=== PATIENT | male | born 1955 | race Asian ===

== ENCOUNTER 2018-10-08 17:47 | Inpatient (IN) | payer OTHER ==
[~2018-10-08] VITALS: Ht 172.7 cm; Wt 57.1 kg
[~2018-10-08 17:47] MED LIST: ACET-141 PO; ACET160O41 PO; APIX5TAB PO; ASPI-817 PO; ATOR40TA68 PO; FAMO20TA18 PO; FOL8 PO; [UNRECOGNIZED DRUG - CODE] PO
[2018-10-08 21:00] VITALS: BP 143/75; PULSE 88; RESP 18; Ht 172.7 cm; Wt 57.1 kg
[2018-10-08] MEDS ORDERED: DOCUSATE SODIUM 100 MG CAP PO SCH (23:00)
[2018-10-08] MEDS ORDERED: MAGNESIUM HYDROXIDE 30ML CUP PO PRN (23:30)
[2018-10-08] MEDS ORDERED: LACTULOSE 30ML CUP PO PRN (23:30)
[2018-10-08] MEDS ORDERED: BISACODYL 10 MG SUPP PR PRN (23:30)
[2018-10-08] MEDS: MAGNESIUM OXIDE 400 MG TAB PO SCH (23:54)
[2018-10-08] MEDS: ACETAMINOPHEN 325 MG TAB PO PRN (23:55)
[2018-10-08] MEDS: ATORVASTATIN 80 MG TAB PO SCH (23:55)
[2018-10-08] MEDS: HEPARIN 5,000 UNIT/1 ML VIAL SC SCH (23:57)
[2018-10-09 02:22] VITALS: BP 109/67; PULSE 81; RESP 18
[2018-10-09] MEDS ORDERED: PENDING SANTYL ORDER FOR WOUND CARE XX PRN (04:00)
[2018-10-09 08:20] VITALS: BP 118/72; PULSE 78; RESP 18
[2018-10-09] MEDS ORDERED: ASPIRIN (EC) 325 MG TAB PO SCH (09:00)
[2018-10-09] MEDS: NICOTINE (7 MG/24 HR) PATCH TRANSDERM SCH (09:08)
[2018-10-09] MEDS: HEPARIN 5,000 UNIT/1 ML VIAL SC SCH ×2 (09:09→20:43)
[2018-10-09] MEDS: FOLIC ACID 1 MG TAB NGT SCH (09:10)
[2018-10-09] MEDS: MAGNESIUM OXIDE 400 MG TAB PO SCH ×2 (09:10→20:43)
[2018-10-09] MEDS: LISINOPRIL 5 MG TAB PO SCH (09:10)
[2018-10-09] MEDS: MULTIVITAMINS/MINERALS TAB PO SCH (09:10)
[2018-10-09] MEDS: SENNA TAB PO SCH (09:10)
[2018-10-09] MEDS: THIAMINE 100 MG TAB PO SCH (09:10)
[2018-10-09] MEDS: DOCUSATE SODIUM 10 MG/ML (10ML CUP) PO SCH ×2 (09:14→21:00)
[2018-10-09] MEDS: ASPIRIN 325 MG TAB PO SCH (12:02)
[2018-10-09 15:10] VITALS: BP 123/75; PULSE 83; RESP 18
[2018-10-09 20:13] VITALS: BP 125/67; PULSE 79; RESP 18
[2018-10-09] MEDS: ATORVASTATIN 80 MG TAB PO SCH (20:43)
[2018-10-10 02:08] VITALS: BP 114/70; RESP 18
[2018-10-10] MEDS ORDERED: PANTOPRAZOLE 40 MG INJ IV SCH (06:00)
[2018-10-10 07:00] VITALS: BP 125/71; PULSE 84; RESP 18
[2018-10-10] MEDS: SENNA TAB PO SCH (09:00)
[2018-10-10] MEDS: DOCUSATE SODIUM 10 MG/ML (10ML CUP) PO SCH ×2 (09:00→20:47)
[2018-10-10] MEDS: ASPIRIN 325 MG TAB PO SCH (09:45)
[2018-10-10] MEDS: FOLIC ACID 1 MG TAB NGT SCH (09:45)
[2018-10-10] MEDS: THIAMINE 100 MG TAB PO SCH (09:45)
[2018-10-10] MEDS: NICOTINE (7 MG/24 HR) PATCH TRANSDERM SCH (09:47)
[2018-10-10] MEDS: MULTIVITAMINS/MINERALS TAB PO SCH (09:47)
[2018-10-10] MEDS: LISINOPRIL 5 MG TAB PO SCH (09:48)
[2018-10-10] MEDS: HEPARIN 5,000 UNIT/1 ML VIAL SC SCH ×2 (09:49→20:49)
[2018-10-10] MEDS: MAGNESIUM OXIDE 400 MG TAB PO SCH ×2 (09:50→20:47)
[2018-10-10 20:00] VITALS: BP 113/73; PULSE 82; RESP 18
[2018-10-10] MEDS: ATORVASTATIN 80 MG TAB PO SCH (20:47)
[2018-10-11 02:10] VITALS: BP 127/70; RESP 18
[2018-10-11] MEDS: LANSOPRAZOLE 30 MG CAP PO SCH (05:48)
[2018-10-11 07:30] VITALS: BP 122/79; PULSE 96; RESP 20
[2018-10-11] MEDS: ASPIRIN 325 MG TAB PO SCH (08:53)
[2018-10-11] MEDS: MAGNESIUM OXIDE 400 MG TAB PO SCH ×2 (08:54→20:52)
[2018-10-11] MEDS: THIAMINE 100 MG TAB PO SCH (08:54)
[2018-10-11] MEDS: FOLIC ACID 1 MG TAB NGT SCH (08:54)
[2018-10-11] MEDS: SENNA TAB PO SCH (08:54)
[2018-10-11] MEDS: MULTIVITAMINS/MINERALS TAB PO SCH (08:54)
[2018-10-11] MEDS: DOCUSATE SODIUM 10 MG/ML (10ML CUP) PO SCH ×2 (08:54→20:49)
[2018-10-11] MEDS: LISINOPRIL 5 MG TAB PO SCH (08:55)
[2018-10-11] MEDS: NICOTINE (7 MG/24 HR) PATCH TRANSDERM SCH (08:56)
[2018-10-11] MEDS: HEPARIN 5,000 UNIT/1 ML VIAL SC SCH ×2 (09:03→20:52)
[2018-10-11 14:00] VITALS: BP 117/77; PULSE 85; RESP 20
[2018-10-11 19:46] VITALS: BP 106/62; PULSE 104; RESP 17
[2018-10-11] MEDS: ATORVASTATIN 80 MG TAB PO SCH (20:49)
[2018-10-12 02:59] VITALS: BP 104/65; PULSE 101; RESP 18
[2018-10-12] MEDS: LANSOPRAZOLE 30 MG CAP PO SCH (06:39)
[2018-10-12 07:00] VITALS: BP 123/77; PULSE 109; RESP 18
[2018-10-12] MEDS: HEPARIN 5,000 UNIT/1 ML VIAL SC SCH ×2 (09:14→20:42)
[2018-10-12] MEDS: NICOTINE (7 MG/24 HR) PATCH TRANSDERM SCH (09:14)
[2018-10-12] MEDS: DOCUSATE SODIUM 10 MG/ML (10ML CUP) PO SCH ×2 (09:14→20:33)
[2018-10-12] MEDS: SENNA TAB PO SCH (09:15)
[2018-10-12] MEDS: LISINOPRIL 5 MG TAB PO SCH (09:15)
[2018-10-12] MEDS: MAGNESIUM OXIDE 400 MG TAB PO SCH ×2 (09:15→20:34)
[2018-10-12] MEDS: MULTIVITAMINS/MINERALS TAB PO SCH (09:15)
[2018-10-12] MEDS: ASPIRIN 325 MG TAB PO SCH (09:15)
[2018-10-12] MEDS: FOLIC ACID 1 MG TAB NGT SCH (09:15)
[2018-10-12] MEDS: THIAMINE 100 MG TAB PO SCH (09:15)
[2018-10-12 14:00] VITALS: BP 119/75; PULSE 90; RESP 18
[2018-10-12] MEDS: NICOTINE (21 MG/24 HR) PATCH TRANSDERM SCH (14:59)
[2018-10-12] MEDS: GUAIFENESIN 20 MG/ML 5ML CUP PO PRN ×2 (15:29→20:33)
[2018-10-12 20:00] VITALS: BP 116/72; PULSE 109; RESP 18
[2018-10-12] MEDS: ATORVASTATIN 80 MG TAB PO SCH (20:33)
[2018-10-12] MEDS: ACETAMINOPHEN 325 MG TAB PO PRN (20:33)
[2018-10-13] VITALS (8 sets, daily range): BP systolic 82–116; BP diastolic 64–75; PULSE 63–119; RESP 18
[2018-10-13] MEDS: LANSOPRAZOLE 30 MG CAP PO SCH (06:26)
[2018-10-13] MEDS: DOCUSATE SODIUM 10 MG/ML (10ML CUP) PO SCH ×2 (09:13→22:08)
[2018-10-13] MEDS: NICOTINE (21 MG/24 HR) PATCH TRANSDERM SCH (09:14)
[2018-10-13] MEDS: ASPIRIN 325 MG TAB PO SCH (09:15)
[2018-10-13] MEDS: SENNA TAB PO SCH (09:15)
[2018-10-13] MEDS: MAGNESIUM OXIDE 400 MG TAB PO SCH ×2 (09:15→22:08)
[2018-10-13] MEDS: LISINOPRIL 5 MG TAB PO SCH (09:17)
[2018-10-13] MEDS: THIAMINE 100 MG TAB PO SCH (09:17)
[2018-10-13] MEDS: FOLIC ACID 1 MG TAB NGT SCH (09:17)
[2018-10-13] MEDS: MULTIVITAMINS/MINERALS TAB PO SCH (09:17)
[2018-10-13] MEDS: HEPARIN 5,000 UNIT/1 ML VIAL SC SCH ×2 (09:23→22:07)
[2018-10-13] MEDS ORDERED: SOD CHLORIDE 0.9% 500 ML IV ONE (12:30)
[2018-10-13] MEDS ORDERED: MIDODRINE 2.5 MG TAB NGT PRN (13:00)
[2018-10-13] MEDS: GUAIFENESIN 20 MG/ML 5ML CUP PO PRN (22:08)
[2018-10-13] MEDS: ATORVASTATIN 80 MG TAB PO SCH (22:08)
[2018-10-14 02:32] VITALS: BP 106/78; PULSE 67; RESP 18
[2018-10-14 07:00] VITALS: BP 134/83; PULSE 90; RESP 18
[2018-10-14] MEDS ORDERED: LISINOPRIL 5 MG TAB PO SCH (09:00)
[2018-10-14] MEDS: HEPARIN 5,000 UNIT/1 ML VIAL SC SCH ×2 (09:55→20:59)
[2018-10-14] MEDS: MAGNESIUM OXIDE 400 MG TAB PO SCH ×2 (09:56→20:56)
[2018-10-14] MEDS: MULTIVITAMINS/MINERALS TAB PO SCH (09:56)
[2018-10-14] MEDS: NICOTINE (21 MG/24 HR) PATCH TRANSDERM SCH (09:56)
[2018-10-14] MEDS: SENNA TAB PO SCH (09:56)
[2018-10-14] MEDS: FAMOTIDINE 20 MG TAB PO SCH ×2 (09:56→20:56)
[2018-10-14] MEDS: THIAMINE 100 MG TAB PO SCH (09:57)
[2018-10-14] MEDS: ASPIRIN 325 MG TAB PO SCH (09:57)
[2018-10-14] MEDS: SILVER SULFADIAZINE 1% 25 GM CR TOP SCH (09:57)
[2018-10-14] MEDS: DOCUSATE SODIUM 10 MG/ML (10ML CUP) PO SCH ×2 (09:57→20:59)
[2018-10-14] MEDS: FOLIC ACID 1 MG TAB NGT SCH (09:57)
[2018-10-14 10:00] VITALS: BP 128/85; PULSE 88; RESP 18
[2018-10-14 14:00] VITALS: BP 124/79; PULSE 98; RESP 18
[2018-10-14 20:00] VITALS: BP 110/68; PULSE 87; RESP 18
[2018-10-14] MEDS: ATORVASTATIN 80 MG TAB PO SCH (20:56)
[2018-10-14] MEDS: GUAIFENESIN 20 MG/ML 5ML CUP PO PRN (20:57)
[2018-10-14] MEDS: ACETAMINOPHEN 325 MG TAB PO PRN (20:57)
[2018-10-15 02:00] VITALS: BP 118/77; PULSE 92; RESP 18
[2018-10-15 08:00] VITALS: BP 130/80; PULSE 90; RESP 17
[2018-10-15] MEDS: SENNA TAB PO SCH (09:00)
[2018-10-15] MEDS: DOCUSATE SODIUM 10 MG/ML (10ML CUP) PO SCH ×2 (09:00→21:53)
[2018-10-15] MEDS: ASPIRIN 325 MG TAB PO SCH (09:10)
[2018-10-15] MEDS: MAGNESIUM OXIDE 400 MG TAB PO SCH ×2 (09:10→21:54)
[2018-10-15] MEDS: THIAMINE 100 MG TAB PO SCH (09:11)
[2018-10-15] MEDS: HEPARIN 5,000 UNIT/1 ML VIAL SC SCH ×2 (09:11→21:50)
[2018-10-15] MEDS: FAMOTIDINE 20 MG TAB PO SCH ×2 (09:11→21:54)
[2018-10-15] MEDS: MULTIVITAMINS/MINERALS TAB PO SCH (09:12)
[2018-10-15] MEDS: FOLIC ACID 1 MG TAB NGT SCH (09:12)
[2018-10-15] MEDS: NICOTINE (21 MG/24 HR) PATCH TRANSDERM SCH (09:14)
[2018-10-15] MEDS: SILVER SULFADIAZINE 1% 25 GM CR TOP SCH (09:30)
[2018-10-15 14:00] VITALS: BP 114/68; PULSE 89; RESP 17
[2018-10-15 20:00] VITALS: BP 118/70; PULSE 87; RESP 18
[2018-10-15] MEDS: GUAIFENESIN 20 MG/ML 5ML CUP PO PRN (21:52)
[2018-10-15] MEDS: ATORVASTATIN 80 MG TAB PO SCH (21:54)
[2018-10-16 02:00] VITALS: BP 122/67; PULSE 90; RESP 18
[2018-10-16 07:30] VITALS: BP 113/77; PULSE 97; RESP 18
[2018-10-16] MEDS: NICOTINE (21 MG/24 HR) PATCH TRANSDERM SCH (09:00)
[2018-10-16] MEDS: HEPARIN 5,000 UNIT/1 ML VIAL SC SCH ×2 (09:01→21:37)
[2018-10-16] MEDS: DOCUSATE SODIUM 10 MG/ML (10ML CUP) PO SCH ×2 (09:02→21:29)
[2018-10-16] MEDS: MAGNESIUM OXIDE 400 MG TAB PO SCH ×2 (09:03→21:30)
[2018-10-16] MEDS: FOLIC ACID 1 MG TAB NGT SCH (09:03)
[2018-10-16] MEDS: THIAMINE 100 MG TAB PO SCH (09:03)
[2018-10-16] MEDS: FAMOTIDINE 20 MG TAB PO SCH ×2 (09:03→21:29)
[2018-10-16] MEDS: ASPIRIN 325 MG TAB PO SCH (09:03)
[2018-10-16] MEDS: MULTIVITAMINS/MINERALS TAB PO SCH (09:03)
[2018-10-16] MEDS: SENNA TAB PO SCH (09:04)
[2018-10-16] MEDS: SILVER SULFADIAZINE 1% 25 GM CR TOP SCH (09:05)
[2018-10-16 14:00] VITALS: BP 113/84; PULSE 108; RESP 20
[2018-10-16 19:39] VITALS: BP 111/72; PULSE 98; RESP 18
[2018-10-16] MEDS: ATORVASTATIN 80 MG TAB PO SCH (21:29)
[2018-10-17 02:55] VITALS: BP 120/67; PULSE 95; RESP 18
[2018-10-17 07:30] VITALS: BP 118/85; PULSE 93; RESP 18
[2018-10-17] MEDS: NICOTINE (21 MG/24 HR) PATCH TRANSDERM SCH (08:56)
[2018-10-17] MEDS: FOLIC ACID 1 MG TAB NGT SCH (08:57)
[2018-10-17] MEDS: MULTIVITAMINS/MINERALS TAB PO SCH (08:57)
[2018-10-17] MEDS: MAGNESIUM OXIDE 400 MG TAB PO SCH ×2 (08:57→20:52)
[2018-10-17] MEDS: ASPIRIN 325 MG TAB PO SCH (08:59)
[2018-10-17] MEDS: FAMOTIDINE 20 MG TAB PO SCH ×2 (09:00→20:52)
[2018-10-17] MEDS: HEPARIN 5,000 UNIT/1 ML VIAL SC SCH ×2 (09:18→21:00)
[2018-10-17] MEDS: SILVER SULFADIAZINE 1% 25 GM CR TOP SCH (09:29)
[2018-10-17] MEDS: SENNA TAB PO SCH (09:52)
[2018-10-17] MEDS: DOCUSATE SODIUM 10 MG/ML (10ML CUP) PO SCH ×2 (09:53→20:52)
[2018-10-17] MEDS: THIAMINE 100 MG TAB PO SCH (10:19)
[2018-10-17 14:00] VITALS: BP 116/80; PULSE 80; RESP 18
[2018-10-17 19:41] VITALS: BP 117/76; PULSE 92; RESP 18
[2018-10-17] MEDS: ATORVASTATIN 80 MG TAB PO SCH (20:52)
[2018-10-18 02:00] VITALS: BP 115/82; PULSE 88; RESP 18
[2018-10-18 07:30] VITALS: BP 114/78; PULSE 93; RESP 18
[2018-10-18] MEDS: THIAMINE 100 MG TAB PO SCH (08:34)
[2018-10-18] MEDS: ASPIRIN 325 MG TAB PO SCH (08:34)
[2018-10-18] MEDS: MAGNESIUM OXIDE 400 MG TAB PO SCH ×2 (08:34→20:45)
[2018-10-18] MEDS: SENNA TAB PO SCH (08:35)
[2018-10-18] MEDS: DOCUSATE SODIUM 10 MG/ML (10ML CUP) PO SCH ×2 (08:35→20:46)
[2018-10-18] MEDS: FAMOTIDINE 20 MG TAB PO SCH ×2 (08:35→20:45)
[2018-10-18] MEDS: FOLIC ACID 1 MG TAB NGT SCH (08:35)
[2018-10-18] MEDS: MULTIVITAMINS/MINERALS TAB PO SCH (08:35)
[2018-10-18] MEDS: HEPARIN 5,000 UNIT/1 ML VIAL SC SCH ×2 (08:36→21:00)
[2018-10-18] MEDS: NICOTINE (21 MG/24 HR) PATCH TRANSDERM SCH (08:38)
[2018-10-18] MEDS: SILVER SULFADIAZINE 1% 25 GM CR TOP SCH (08:52)
[2018-10-18 14:00] VITALS: BP 117/81; PULSE 90; RESP 18
[2018-10-18 20:00] VITALS: BP 107/76; PULSE 100; RESP 18
[2018-10-18] MEDS: ATORVASTATIN 80 MG TAB PO SCH (20:45)
[2018-10-18] MEDS: GUAIFENESIN 20 MG/ML 5ML CUP PO PRN (20:49)
[2018-10-19 03:22] VITALS: BP 104/70; PULSE 96; RESP 18
[2018-10-19 07:00] VITALS: BP 121/79; PULSE 88; RESP 18
[2018-10-19] MEDS: NICOTINE (21 MG/24 HR) PATCH TRANSDERM SCH (08:33)
[2018-10-19] MEDS: DOCUSATE SODIUM 10 MG/ML (10ML CUP) PO SCH ×2 (08:33→20:35)
[2018-10-19] MEDS: ASPIRIN 325 MG TAB PO SCH (08:34)
[2018-10-19] MEDS: HEPARIN 5,000 UNIT/1 ML VIAL SC SCH ×2 (08:34→20:37)
[2018-10-19] MEDS: MAGNESIUM OXIDE 400 MG TAB PO SCH ×2 (08:34→20:35)
[2018-10-19] MEDS: MULTIVITAMINS/MINERALS TAB PO SCH (08:34)
[2018-10-19] MEDS: THIAMINE 100 MG TAB PO SCH (08:34)
[2018-10-19] MEDS: SENNA TAB PO SCH (08:35)
[2018-10-19] MEDS: FOLIC ACID 1 MG TAB NGT SCH (08:35)
[2018-10-19] MEDS: FAMOTIDINE 20 MG TAB PO SCH ×2 (08:35→20:35)
[2018-10-19] MEDS: SILVER SULFADIAZINE 1% 25 GM CR TOP SCH (08:36)
[2018-10-19 14:00] VITALS: BP 116/77; PULSE 92; RESP 18
[2018-10-19] MEDS: GUAIFENESIN 20 MG/ML 5ML CUP PO PRN ×2 (16:05→20:48)
[2018-10-19 20:00] VITALS: BP 128/80; PULSE 86; RESP 18
[2018-10-19] MEDS: ATORVASTATIN 80 MG TAB PO SCH (20:35)
[2018-10-20 02:00] VITALS: BP 113/75; PULSE 98; RESP 18
[2018-10-20 07:30] VITALS: BP 146/87; PULSE 79; RESP 18
[2018-10-20] MEDS: ASPIRIN 325 MG TAB PO SCH (08:37)
[2018-10-20] MEDS: DOCUSATE SODIUM 10 MG/ML (10ML CUP) PO SCH ×2 (08:37→20:27)
[2018-10-20] MEDS: MAGNESIUM OXIDE 400 MG TAB PO SCH ×2 (08:38→20:27)
[2018-10-20] MEDS: HEPARIN 5,000 UNIT/1 ML VIAL SC SCH ×2 (08:38→20:35)
[2018-10-20] MEDS: THIAMINE 100 MG TAB PO SCH (08:38)
[2018-10-20] MEDS: FAMOTIDINE 20 MG TAB PO SCH ×2 (08:38→20:27)
[2018-10-20] MEDS: SENNA TAB PO SCH (08:38)
[2018-10-20] MEDS: MULTIVITAMINS/MINERALS TAB PO SCH (08:38)
[2018-10-20] MEDS: FOLIC ACID 1 MG TAB NGT SCH (08:38)
[2018-10-20] MEDS: NICOTINE (21 MG/24 HR) PATCH TRANSDERM SCH (08:40)
[2018-10-20] MEDS: SILVER SULFADIAZINE 1% 25 GM CR TOP SCH (08:42)
[2018-10-20] MEDS: ACETAMINOPHEN 325 MG TAB PO PRN (08:48)
[2018-10-20] MEDS: GUAIFENESIN/DM (SR) TAB PO SCH ×2 (13:43→20:26)
[2018-10-20 14:00] VITALS: BP 122/84; PULSE 93; RESP 20
[2018-10-20] MEDS: IBUPROFEN 200 MG TAB PO PRN ×2 (15:22→20:27)
[2018-10-20 20:00] VITALS: BP 124/83; PULSE 89; RESP 18
[2018-10-20] MEDS: ATORVASTATIN 80 MG TAB PO SCH (20:27)
[2018-10-21 02:00] VITALS: BP 123/77; PULSE 76; RESP 18
[2018-10-21 07:00] VITALS: BP 132/84; PULSE 101; RESP 18
[2018-10-21] MEDS: GUAIFENESIN/DM 5ML CUP PO PRN (09:36)
[2018-10-21] MEDS: DOCUSATE SODIUM 10 MG/ML (10ML CUP) PO SCH ×2 (09:37→20:29)
[2018-10-21] MEDS: SENNA TAB PO SCH (09:37)
[2018-10-21] MEDS: ASPIRIN 325 MG TAB PO SCH (09:37)
[2018-10-21] MEDS: THIAMINE 100 MG TAB PO SCH (09:37)
[2018-10-21] MEDS: FOLIC ACID 1 MG TAB NGT SCH (09:37)
[2018-10-21] MEDS: MULTIVITAMINS/MINERALS TAB PO SCH (09:37)
[2018-10-21] MEDS: FAMOTIDINE 20 MG TAB PO SCH ×2 (09:37→20:05)
[2018-10-21] MEDS: NICOTINE (21 MG/24 HR) PATCH TRANSDERM SCH (09:37)
[2018-10-21] MEDS: MAGNESIUM OXIDE 400 MG TAB PO SCH ×2 (09:37→20:05)
[2018-10-21] MEDS: HEPARIN 5,000 UNIT/1 ML VIAL SC SCH ×2 (09:38→20:25)
[2018-10-21] MEDS: IBUPROFEN 200 MG TAB PO PRN (09:58)
[2018-10-21 14:00] VITALS: BP 131/87; PULSE 99; RESP 18
[2018-10-21] MEDS: CELECOXIB 100 MG CAP PO SCH ×2 (14:45→20:05)
[2018-10-21] MEDS: ATORVASTATIN 80 MG TAB PO SCH (20:05)
[2018-10-21 20:27] VITALS: BP 119/79; RESP 18
[2018-10-22 03:55] VITALS: BP 117/76; RESP 18
[2018-10-22 07:30] VITALS: BP 106/69; PULSE 96; RESP 18
[2018-10-22] MEDS ORDERED: SOD CHLORIDE 0.9% 1,000 ML IV ONE (08:30)
[2018-10-22] MEDS: MULTIVITAMINS/MINERALS TAB PO SCH (09:30)
[2018-10-22] MEDS: SENNA TAB PO SCH (09:30)
[2018-10-22] MEDS: ASPIRIN 325 MG TAB PO SCH (09:30)
[2018-10-22] MEDS: FOLIC ACID 1 MG TAB NGT SCH (09:30)
[2018-10-22] MEDS: FAMOTIDINE 20 MG TAB PO SCH ×2 (09:30→20:48)
[2018-10-22] MEDS: THIAMINE 100 MG TAB PO SCH (09:30)
[2018-10-22] MEDS: CELECOXIB 100 MG CAP PO SCH ×2 (09:31→20:48)
[2018-10-22] MEDS: HEPARIN 5,000 UNIT/1 ML VIAL SC SCH ×2 (09:31→20:49)
[2018-10-22] MEDS: DOCUSATE SODIUM 10 MG/ML (10ML CUP) PO SCH ×2 (09:31→20:48)
[2018-10-22] MEDS: MAGNESIUM OXIDE 400 MG TAB PO SCH ×2 (09:31→20:48)
[2018-10-22] MEDS: NICOTINE (21 MG/24 HR) PATCH TRANSDERM SCH (09:31)
[2018-10-22 14:00] VITALS: BP 107/70; PULSE 89; RESP 18
[2018-10-22] MEDS: CIPROFLOXACIN 250 MG TAB PO SCH (17:47)
[2018-10-22] MEDS ORDERED: CIPROFLOXACIN 250 MG TAB PO SCH (18:00)
[2018-10-22 20:00] VITALS: BP 117/74; PULSE 72
[2018-10-22] MEDS: ATORVASTATIN 80 MG TAB PO SCH (20:48)
[2018-10-23 02:00] VITALS: BP 115/71; PULSE 82
[2018-10-23] MEDS: CIPROFLOXACIN 250 MG TAB PO SCH ×2 (06:44→18:17)
[2018-10-23 07:30] VITALS: BP 108/67; PULSE 82; RESP 20
[2018-10-23] MEDS: DOCUSATE SODIUM 10 MG/ML (10ML CUP) PO SCH ×2 (11:21→20:08)
[2018-10-23] MEDS: MAGNESIUM OXIDE 400 MG TAB PO SCH ×2 (11:21→20:08)
[2018-10-23] MEDS: FOLIC ACID 1 MG TAB NGT SCH (11:21)
[2018-10-23] MEDS: ASPIRIN 325 MG TAB PO SCH (11:21)
[2018-10-23] MEDS: SENNA TAB PO SCH (11:22)
[2018-10-23] MEDS: MULTIVITAMINS/MINERALS TAB PO SCH (11:22)
[2018-10-23] MEDS: CELECOXIB 100 MG CAP PO SCH ×2 (11:22→20:08)
[2018-10-23] MEDS: THIAMINE 100 MG TAB PO SCH (11:22)
[2018-10-23] MEDS: FAMOTIDINE 20 MG TAB PO SCH ×2 (11:23→20:08)
[2018-10-23] MEDS: NICOTINE (21 MG/24 HR) PATCH TRANSDERM SCH (11:23)
[2018-10-23] MEDS: HEPARIN 5,000 UNIT/1 ML VIAL SC SCH ×2 (11:25→20:11)
[2018-10-23 14:00] VITALS: BP 111/72; PULSE 86; RESP 20
[2018-10-23] MEDS: GUAIFENESIN/DM 5ML CUP PO PRN (18:20)
[2018-10-23] MEDS: ATORVASTATIN 80 MG TAB PO SCH (20:08)
[2018-10-23 20:24] VITALS: BP 119/85; PULSE 79; RESP 18
[2018-10-24 02:00] VITALS: BP 112/78; PULSE 80; RESP 18
[2018-10-24] MEDS: CIPROFLOXACIN 250 MG TAB PO SCH ×2 (06:49→17:46)
[2018-10-24 08:37] VITALS: BP 126/81; PULSE 74; RESP 17
[2018-10-24] MEDS: NICOTINE (21 MG/24 HR) PATCH TRANSDERM SCH (10:03)
[2018-10-24] MEDS: SENNA TAB PO SCH (10:04)
[2018-10-24] MEDS: MULTIVITAMINS/MINERALS TAB PO SCH (10:04)
[2018-10-24] MEDS: DOCUSATE SODIUM 10 MG/ML (10ML CUP) PO SCH ×2 (10:04→21:15)
[2018-10-24] MEDS: ASPIRIN 325 MG TAB PO SCH (10:04)
[2018-10-24] MEDS: MAGNESIUM OXIDE 400 MG TAB PO SCH ×2 (10:04→21:14)
[2018-10-24] MEDS: THIAMINE 100 MG TAB PO SCH (10:05)
[2018-10-24] MEDS: HEPARIN 5,000 UNIT/1 ML VIAL SC SCH ×2 (10:25→21:27)
[2018-10-24] MEDS: FAMOTIDINE 20 MG TAB PO SCH ×2 (10:28→21:14)
[2018-10-24] MEDS: CELECOXIB 100 MG CAP PO SCH ×2 (10:28→21:14)
[2018-10-24] MEDS: FOLIC ACID 1 MG TAB NGT SCH (10:29)
[2018-10-24 15:15] VITALS: BP 131/75; PULSE 76; RESP 18
[2018-10-24 19:25] VITALS: BP 115/75; PULSE 85; RESP 18
[2018-10-24] MEDS: ATORVASTATIN 80 MG TAB PO SCH (21:14)
[2018-10-25 02:30] VITALS: BP 107/65; PULSE 78; RESP 18
[2018-10-25] MEDS: CIPROFLOXACIN 250 MG TAB PO SCH ×2 (06:38→18:15)
[2018-10-25 07:30] VITALS: BP 118/78; PULSE 81; RESP 16
[2018-10-25] MEDS: SENNA TAB PO SCH (09:00)
[2018-10-25] MEDS: DOCUSATE SODIUM 10 MG/ML (10ML CUP) PO SCH ×2 (09:00→21:00)
[2018-10-25] MEDS: NICOTINE (21 MG/24 HR) PATCH TRANSDERM SCH (09:26)
[2018-10-25] MEDS: ASPIRIN 325 MG TAB PO SCH (09:27)
[2018-10-25] MEDS: THIAMINE 100 MG TAB PO SCH (09:27)
[2018-10-25] MEDS: FOLIC ACID 1 MG TAB NGT SCH (09:27)
[2018-10-25] MEDS: MULTIVITAMINS/MINERALS TAB PO SCH (09:27)
[2018-10-25] MEDS: MAGNESIUM OXIDE 400 MG TAB PO SCH ×2 (09:27→21:26)
[2018-10-25] MEDS: FAMOTIDINE 20 MG TAB PO SCH ×2 (09:27→21:26)
[2018-10-25] MEDS: CELECOXIB 100 MG CAP PO SCH ×2 (09:27→21:25)
[2018-10-25] MEDS: HEPARIN 5,000 UNIT/1 ML VIAL SC SCH ×2 (09:28→21:30)
[2018-10-25 13:53] VITALS: BP 104/72; PULSE 89; RESP 16
[2018-10-25 20:03] VITALS: BP 116/72; PULSE 77; RESP 18
[2018-10-25] MEDS: ATORVASTATIN 80 MG TAB PO SCH (21:26)
[2018-10-26 02:00] VITALS: BP 112/77; PULSE 82; RESP 18
[2018-10-26 07:00] VITALS: BP 117/76; PULSE 79; RESP 18
[2018-10-26] MEDS: CIPROFLOXACIN 250 MG TAB PO SCH ×2 (07:05→17:30)
[2018-10-26] MEDS: DOCUSATE SODIUM 10 MG/ML (10ML CUP) PO SCH ×2 (09:00→21:34)
[2018-10-26] MEDS: SENNA TAB PO SCH (09:00)
[2018-10-26] MEDS: THIAMINE 100 MG TAB PO SCH (09:16)
[2018-10-26] MEDS: CELECOXIB 100 MG CAP PO SCH ×2 (09:16→20:47)
[2018-10-26] MEDS: FAMOTIDINE 20 MG TAB PO SCH ×2 (09:17→20:47)
[2018-10-26] MEDS: ASPIRIN 325 MG TAB PO SCH (09:17)
[2018-10-26] MEDS: MULTIVITAMINS/MINERALS TAB PO SCH (09:17)
[2018-10-26] MEDS: MAGNESIUM OXIDE 400 MG TAB PO SCH ×2 (09:17→20:48)
[2018-10-26] MEDS: FOLIC ACID 1 MG TAB NGT SCH (09:17)
[2018-10-26] MEDS: HEPARIN 5,000 UNIT/1 ML VIAL SC SCH ×2 (09:24→20:47)
[2018-10-26] MEDS: NICOTINE (21 MG/24 HR) PATCH TRANSDERM SCH (09:25)
[2018-10-26 14:00] VITALS: BP 114/75; PULSE 84; RESP 18
[2018-10-26] MEDS: SILVER SULFADIAZINE 1% 25 GM CR TOP SCH (15:48)
[2018-10-26] MEDS: GUAIFENESIN/DM 5ML CUP PO PRN (15:55)
[2018-10-26 20:36] VITALS: BP 118/78; PULSE 87; RESP 18
[2018-10-26] MEDS: ATORVASTATIN 80 MG TAB PO SCH (20:48)
[2018-10-27 03:15] VITALS: BP 128/77; PULSE 78; RESP 18
[2018-10-27] MEDS: CIPROFLOXACIN 250 MG TAB PO SCH ×2 (07:03→17:36)
[2018-10-27 07:30] VITALS: BP 119/77; PULSE 78; RESP 18
[2018-10-27] MEDS: MAGNESIUM OXIDE 400 MG TAB PO SCH ×2 (09:20→21:12)
[2018-10-27] MEDS: CELECOXIB 100 MG CAP PO SCH ×2 (09:20→21:11)
[2018-10-27] MEDS: FAMOTIDINE 20 MG TAB PO SCH ×2 (09:20→21:12)
[2018-10-27] MEDS: SILVER SULFADIAZINE 1% 25 GM CR TOP SCH (09:20)
[2018-10-27] MEDS: NICOTINE (21 MG/24 HR) PATCH TRANSDERM SCH (09:20)
[2018-10-27] MEDS: THIAMINE 100 MG TAB PO SCH (09:20)
[2018-10-27] MEDS: SENNA TAB PO SCH (09:20)
[2018-10-27] MEDS: MULTIVITAMINS/MINERALS TAB PO SCH (09:20)
[2018-10-27] MEDS: FOLIC ACID 1 MG TAB NGT SCH (09:20)
[2018-10-27] MEDS: ASPIRIN 325 MG TAB PO SCH (09:20)
[2018-10-27] MEDS: DOCUSATE SODIUM 10 MG/ML (10ML CUP) PO SCH ×2 (09:20→21:11)
[2018-10-27] MEDS: HEPARIN 5,000 UNIT/1 ML VIAL SC SCH ×2 (09:21→21:24)
[2018-10-27 14:00] VITALS: BP 132/82; PULSE 80; RESP 18
[2018-10-27 20:00] VITALS: BP_SYST 113; BP_SYST 133; BP_SYST 144; BP_DIAS 67; BP_DIAS 72; PULSE 51; PULSE 84; RESP 18
[2018-10-27] MEDS: GUAIFENESIN/DM 5ML CUP PO PRN (21:11)
[2018-10-27] MEDS: ATORVASTATIN 80 MG TAB PO SCH (21:12)
[2018-10-28 02:00] VITALS: BP 122/67; PULSE 81; RESP 18
[2018-10-28] MEDS: CIPROFLOXACIN 250 MG TAB PO SCH ×2 (05:30→18:07)
[2018-10-28 07:30] VITALS: BP 133/78; PULSE 75; RESP 20
[2018-10-28] MEDS: FAMOTIDINE 20 MG TAB PO SCH ×2 (09:32→21:43)
[2018-10-28] MEDS: MAGNESIUM OXIDE 400 MG TAB PO SCH ×2 (09:32→21:43)
[2018-10-28] MEDS: THIAMINE 100 MG TAB PO SCH (09:32)
[2018-10-28] MEDS: DOCUSATE SODIUM 10 MG/ML (10ML CUP) PO SCH ×2 (09:32→21:43)
[2018-10-28] MEDS: MULTIVITAMINS/MINERALS TAB PO SCH (09:32)
[2018-10-28] MEDS: CELECOXIB 100 MG CAP PO SCH ×2 (09:32→21:43)
[2018-10-28] MEDS: SENNA TAB PO SCH (09:32)
[2018-10-28] MEDS: ASPIRIN 325 MG TAB PO SCH (09:32)
[2018-10-28] MEDS: SILVER SULFADIAZINE 1% 25 GM CR TOP SCH (09:33)
[2018-10-28] MEDS: NICOTINE (21 MG/24 HR) PATCH TRANSDERM SCH (09:34)
[2018-10-28] MEDS: HEPARIN 5,000 UNIT/1 ML VIAL SC SCH (09:35)
[2018-10-28] MEDS: FOLIC ACID 1 MG TAB NGT SCH (09:35)
[2018-10-28 14:00] VITALS: BP 132/95; PULSE 103; RESP 20
[2018-10-28 21:00] VITALS: BP 104/72; PULSE 72; RESP 20
[2018-10-28] MEDS: ATORVASTATIN 80 MG TAB PO SCH (21:44)
[2018-10-29] MEDS: CIPROFLOXACIN 250 MG TAB PO SCH (06:43)
[2018-10-29 07:00] VITALS: BP 111/67; PULSE 74; RESP 18
[2018-10-29] MEDS: DOCUSATE SODIUM 10 MG/ML (10ML CUP) PO SCH (09:04)
[2018-10-29] MEDS: MAGNESIUM OXIDE 400 MG TAB PO SCH (09:04)
[2018-10-29] MEDS: FOLIC ACID 1 MG TAB NGT SCH (09:04)
[2018-10-29] MEDS: FAMOTIDINE 20 MG TAB PO SCH (09:04)
[2018-10-29] MEDS: ASPIRIN 325 MG TAB PO SCH (09:04)
[2018-10-29] MEDS: SILVER SULFADIAZINE 1% 25 GM CR TOP SCH (09:05)
[2018-10-29] MEDS: NICOTINE (21 MG/24 HR) PATCH TRANSDERM SCH (09:05)
[2018-10-29] MEDS: CELECOXIB 100 MG CAP PO SCH (09:05)
[2018-10-29] MEDS: THIAMINE 100 MG TAB PO SCH (09:05)
[2018-10-29] MEDS: MULTIVITAMINS/MINERALS TAB PO SCH (09:05)
[2018-10-29] MEDS: SENNA TAB PO SCH (09:05)
== END 2018-10-29 11:30 | disposition home health service (06) | DRG 57 ==
LOC: VRC 20:11
PROVIDERS: ADMIT Physical Medicine & Rehabilitation; ATTEND Internal Medicine Pulmonary Disease
DX: I69.351 Hemiplegia and hemiparesis following cerebral infarction affecting right dominant side (principal); N39.0 Urinary tract infection, site not specified; R13.12 Dysphagia, oropharyngeal phase; I65.22 Occlusion and stenosis of left carotid artery; F17.200 Nicotine dependence, unspecified, uncomplicated; I10 Essential (primary) hypertension; R00.0 Tachycardia, unspecified; Z74.09 Other reduced mobility; Z86.59 Personal history of other mental and behavioral disorders; I69.391 Dysphagia following cerebral infarction; I69.320 Aphasia following cerebral infarction; Z72.89 Other problems related to lifestyle
CPT/HCPCS: 71045; 74230; 80048; 80053; 81001; 82607; 82746; 82962; 85025; 87081; 87086; 92507; 92523; 92526; 92610; 92611; 97110; 97112; 97116; 97150; 97163; 97167; 97530; 97535; 97542; A4310; C9113; J1644; J7030; J7040; L3675